=== PATIENT | female | born 1945 | race Caucasian/White ===

== ENCOUNTER 2020-06-26 09:11 | Outpatient (CLI) | payer MEDICARE, BC ==
[~2020-06-26] VITALS: Ht 160 cm; Wt 81.6 kg
[~2020-06-26 09:11] MED LIST: ASPI-1071 PO; ATOR40TA71 PO; BISO1TAB37; CHOL100046 PO; METF-900 PO; OMEP20CA15 PO; PARO10TA23 PO; SYN0.025T PO; [UNRECOGNIZED DRUG - OTHER]
[2020-06-26 10:22] LABS: BASOPHILS # (AUTO) 0.1 X10'3 (0-0.2); BASOPHILS % (AUTO) 1.4 % (0-1); EOSINOPHILS # (AUTO) 0.3 X10'3 (0-0.9); EOSINOPHILS % (AUTO) 3.9 % (0-6); HEMATOCRIT 39.7 % (35.0-45.0); HEMOGLOBIN 13.4 g/dl (12.0-16.0); LYMPHOCYTES # (AUTO) 2.5 X10'3 (1.1-4.8); LYMPHOCYTES % (AUTO) 29.1 % (21-51); MEAN CORPUSCULAR HEMOGLOBIN 27.6 PG (27.0-31.0); MEAN CORPUSCULAR HGB CONC 33.7 g/dL (33.0-36.5); MONOCYTES # (AUTO) 0.8 X10'3 (0-0.9); NEUTROPHILS # (AUTO) 4.9 X10'3 (1.8-7.7); NEUTROPHILS % (AUTO) 56.6 % (42-75); PLATELET COUNT 202 X10'3 (140-440); RED BLOOD COUNT 4.85 X10'6 (4.20-5.60); RED CELL DISTRIBUTION WIDTH 13.5 % (11.5-14.5); WHITE BLOOD COUNT 8.7 X10'3 (4.5-11.0)
[2020-06-26] MEDS ORDERED: albuterol 2.5 MG/3 ML nebule NEB ONE (10:25)
[2020-06-26 10:41] LABS: PARTIAL THROMBOPLASTIN TIME 26 SECONDS (22-32)
[2020-06-26 10:54] LABS: ALANINE AMINOTRANSFERASE 26 U/L (12-78); ALBUMIN 3.9 G/DL (3.4-5.0); ALBUMIN/GLOBULIN RATIO 1.1 (1.1-1.5); ALKALINE PHOSPHATASE 115 IU/L (46-116); ANION GAP 9 (8-16); ASPARTATE AMINO TRANSFERASE 21 U/L (10-37); BILIRUBIN,TOTAL 0.6 MG/DL (0.1-1.0); BLOOD UREA NITROGEN 15 MG/DL (7-18); BUN/CREATININE RATIO 9.7 (6.6-38.0); CALCIUM 8.6 MG/DL (8.5-10.1); CHLORIDE 107 MMOL/L (99-107); CREATININE 1.55 MG/DL (0.40-0.90); GLUCOSE 127 MG/DL (70-104); POTASSIUM 3.9 MMOL/L (3.5-5.1); SODIUM 145 MMOL/L (135-145); TOTAL CARBON DIOXIDE 28.6 MMOL/L (24-32); TOTAL PROTEIN 7.5 G/DL (6.4-8.2); eGFR 33 ML/MIN
== END 2020-06-26 23:59 | disposition home or self-care (01) ==
LOC: RT 09:11
PROVIDERS: ATTEND Internal Medicine Cardiovascular Disease
DX: I35.0 Nonrheumatic aortic (valve) stenosis (principal); R06.02 Shortness of breath; I65.29 Occlusion and stenosis of unspecified carotid artery
CPT/HCPCS: 36415; 71046; 80053; 85025; 85610; 85730; 94060; 94727; 94729; 94760

== ENCOUNTER 2020-06-29 12:39 | Outpatient (CLI) | payer MEDICARE, BC ==
[~2020-06-29 12:39] MED LIST changes: +iohexol 350 MG/ML 50ML vial IV ONE; +iohexol 350MG/ML 100ml bottle IV ONE
== END 2020-06-29 23:59 | disposition home or self-care (01) ==
LOC: 64 CT 12:39
PROVIDERS: ATTEND Internal Medicine Cardiovascular Disease
DX: K57.90 Diverticulosis of intestine, part unspecified, without perforation or abscess without bleeding (principal); M48.061 Spinal stenosis, lumbar region without neurogenic claudication; M81.0 Age-related osteoporosis without current pathological fracture; K42.9 Umbilical hernia without obstruction or gangrene; N28.1 Cyst of kidney, acquired; I70.0 Atherosclerosis of aorta; I35.8 Other nonrheumatic aortic valve disorders; I25.10 Atherosclerotic heart disease of native coronary artery without angina pectoris; R91.1 Solitary pulmonary nodule
CPT/HCPCS: 71275; 74174; Q9967

== ENCOUNTER 2020-07-11 11:51 | Day surgery (SDC) | payer MEDICARE, BC ==
[2020-07-06 14:26] LABS: BASOPHILS # (AUTO) 0.1 X10'3 (0-0.2); BASOPHILS % (AUTO) 1.3 % (0-1); EOSINOPHILS # (AUTO) 0.3 X10'3 (0-0.9); EOSINOPHILS % (AUTO) 3.5 % (0-6); HEMATOCRIT 39.3 % (35.0-45.0); HEMOGLOBIN 13.4 g/dl (12.0-16.0); LYMPHOCYTES # (AUTO) 1.8 X10'3 (1.1-4.8); LYMPHOCYTES % (AUTO) 24.3 % (21-51); MEAN CORPUSCULAR HEMOGLOBIN 28.1 PG (27.0-31.0); MEAN CORPUSCULAR HGB CONC 34.1 g/dL (33.0-36.5); MEAN CORPUSCULAR VOLUME 82.5 FL (78-98); MEAN PLATELET VOLUME 10.2 FL (7.4-10.4); MONOCYTES # (AUTO) 0.7 X10'3 (0-0.9); MONOCYTES % (AUTO) 8.9 % (2-12); NEUTROPHILS # (AUTO) 4.7 X10'3 (1.8-7.7); PLATELET COUNT 183 X10'3 (140-440); RED BLOOD COUNT 4.76 X10'6 (4.20-5.60); RED CELL DISTRIBUTION WIDTH 13.8 % (11.5-14.5); WHITE BLOOD COUNT 7.6 X10'3 (4.5-11.0)
[2020-07-06 14:36] LABS: ALBUMIN 3.7 G/DL (3.4-5.0); ANION GAP 7 (8-16); BLOOD UREA NITROGEN 15 MG/DL (7-18); BUN/CREATININE RATIO 9.1 (6.6-38.0); CALCIUM 8.5 MG/DL (8.5-10.1); CHLORIDE 105 MMOL/L (99-107); CREATININE 1.65 MG/DL (0.40-0.90); GLUCOSE 120 MG/DL (70-104); SODIUM 142 MMOL/L (135-145); TOTAL CARBON DIOXIDE 30.4 MMOL/L (24-32); eGFR 30 ML/MIN
[2020-07-06 14:39] LABS: PARTIAL THROMBOPLASTIN TIME 26 SECONDS (22-32)
[2020-07-11] VITALS (7 sets, daily range): BP systolic 123–156; BP diastolic 60–71
[~2020-07-11] VITALS: Ht 154.9 cm; Wt 82.1 kg
[~2020-07-11 11:51] MED LIST changes: -iohexol 350 MG/ML 50ML vial IV ONE; -iohexol 350MG/ML 100ml bottle IV ONE
[2020-07-11] MEDS ORDERED: diphenhydrAMINE 25mg capsule PO PRN (12:15)
[2020-07-11] MEDS ORDERED: LORazepam 0.5 MG tablet PO PRN (12:15)
[2020-07-11] MEDS ORDERED: LIDOcaine/PRILOcaine 5gm cream TP ONE (12:15)
[2020-07-11] MEDS ORDERED: normal saline 1,000 ML IV SCH (12:15)
[2020-07-11] MEDS ORDERED: TRAV5DRO (12:16)
[2020-07-11] MEDS ORDERED: ASPI-10 PO (12:16)
[2020-07-11] MEDS ORDERED: nitroGLYCERIN-Tridil 50MG/D5W 250 ML IV ONE (14:12)
[2020-07-11] MEDS ORDERED: fentaNYL/PF 50MCG/1 ML 2ML syringe ONE (14:12)
[2020-07-11] MEDS ORDERED: midazolam 2 mg/2 ml injection ONE (14:12)
[2020-07-11] MEDS ORDERED: verapamil 2.5 mg/ml inj IV ONE (14:12)
[2020-07-11] MEDS ORDERED: LIDOcaine 1% (10mg/ml)w/preservative injection 20ml MDV ONE (14:12)
[2020-07-11] MEDS ORDERED: iohexol 350MG/ML 100ml bottle IV ONE (14:13)
[2020-07-11] MEDS ORDERED: heparin 1,000unit/ml 10ml vial 10 ML ONE (14:13)
[2020-07-11] MEDS ORDERED: FLU VACC QS2020-21(6MOS UP)/PF 60 MCG/0.5 ML SYRINGE IMVAC ONE (14:20)
--- NOTE | 2020-07-11 16:22 | NUR ---
VASCULAR BAND REMOVED, STERILE DRSG OF 2X2 AND TEGADERM APPLIED, TOPPED WITH FOLDED 4X4 AND COFLEX FOR SUPPORT AND COMFORT, PT AWARE SHE MAY REMOVE OR APPLY TOP DRSG FOR COMFORT, TEGADERM TO BE REMOVED PRIOR TO SHOWER AFTER 24 HOURS. PT STATES UNDERSTANDING. Addendum: 07/11/20 at 1732 by Dominique Cintron RN Amended: Links added.
== END 2020-07-11 17:10 | disposition home or self-care (01) ==
LOC: SSTAY O 11:51
PROVIDERS: ATTEND Internal Medicine Interventional Cardiology
DX: I35.0 Nonrheumatic aortic (valve) stenosis (principal); I25.10 Atherosclerotic heart disease of native coronary artery without angina pectoris; E11.59 Type 2 diabetes mellitus with other circulatory complications; E78.5 Hyperlipidemia, unspecified; I10 Essential (primary) hypertension; K21.9 Gastro-esophageal reflux disease without esophagitis; Z85.3 Personal history of malignant neoplasm of breast; Z88.8 Allergy status to other drugs, medicaments and biological substances; Z79.899 Other long term (current) drug therapy; Z79.01 Long term (current) use of anticoagulants; Z79.84 Long term (current) use of oral hypoglycemic drugs; Z87.891 Personal history of nicotine dependence; Z80.3 Family history of malignant neoplasm of breast; Z83.79 Family history of other diseases of the digestive system
CPT/HCPCS: 36415; 80048; 85025; 85610; 85730; 93005; 93454; 99152; C1769; C1894; J1644; J2001; J2250; J3010; J7030; Q0163; Q9967; A4620; J3490

== ENCOUNTER 2020-08-31 16:00 | Outpatient (CLI) | payer MEDICARE, BC ==
[~2020-08-31] VITALS: Ht 154.9 cm; Wt 80.9 kg
[~2020-08-31 16:00] MED LIST changes: +ASPI-10 PO; -ASPI-1071 PO; +BISO10TA PO; -BISO1TAB37; -CHOL100046 PO; +CLOP75TA34 PO; -[UNRECOGNIZED DRUG - OTHER]
--- NOTE | 2020-08-31 17:16 | NUR ---
Patient returned today for 30 day f/up visit. Echo and EKG reviewed. Patient was able to perform walk test, complete KCCQ12 and have vital signs measured. Patient was seen by Dr. Cai and Dr. Nguyen.
[2020-08-31 17:19] VITALS: BP 149/57
== END 2020-08-31 23:59 | disposition home or self-care (01) ==
LOC: TAVR 16:00
PROVIDERS: ATTEND Internal Medicine Cardiovascular Disease
DX: Z48.812 Encounter for surgical aftercare following surgery on the circulatory system (principal); Z95.2 Presence of prosthetic heart valve